=== PATIENT | female | born 1955 | race Caucasian/White ===

== ENCOUNTER 2019-09-15 12:15 | Day surgery (SDC) | payer OTHER ==
[2019-09-01 13:50] LABS: URINE BILIRUBIN NEGATIVE (Negative); URINE BLOOD NEGATIVE (Negative); URINE CLARITY CLEAR; URINE COLOR YELLOW; URINE GLUCOSE-RANDOM* NEGATIVE (Negative); URINE KETONES NEGATIVE (Negative); URINE LEUKOCYTES-REFLEX 1+ (Negative); URINE NITRITE-REFLEX NEGATIVE (Negative); URINE PROTEIN (DIPSTICK) NEGATIVE (Negative); URINE UROBILINOGEN 0.2 E.U./dl (0.2-1.0)
[2019-09-01 13:59] LABS: CASTS None Seen /LPF (None Seen); SQUAMOUS 0-3 Few /LPF (0-3); URINE WBC-REFLEX 0-5 Rare /HPF (0-5)
[2019-09-01 14:00] LABS: BACTERIA-REFLEX 1-9 Few /HPF (None Seen); CRYSTALS None Seen /LPF (None Seen); URINE RBC None Seen /HPF (0-2)
[2019-09-01 14:02] LABS: PROTIME 10.3 Seconds (9.3-11.4)
[2019-09-01 14:03] LABS: ALBUMIN 4.4 g/dL (3.4-5.0); CALCIUM 9.5 mg/dL (8.5-10.1); CREATININE 0.6 mg/dL (0.6-1.0); POTASSIUM 4.2 mmol/L (3.5-5.1)
[2019-09-01 14:11] LABS: HEMOGLOBIN 13.7 gm/dL (12.0-15.0); MCH 29.9 pg (26.0-34.0); MCHC 33.3 g/dL (28.0-37.0); MCV 89.8 fL (80.0-100.0); RBC 4.56 mil/uL (4.20-5.00); RDW 12.6 % (10.5-14.5); WBC 8.1 thou/uL (4.0-11.0)
[~2019-09-15] VITALS: Ht 167.6 cm; Wt 83.5 kg
--- NOTE | ~2019-09-15 | O ---
[facility] [place] [address] OPERATIVE REPORT Name: REAL GUARDADO Room #: 150-7 [facility] M..#: [id number] Admission: 09/15/19 Attend Phys: Valentin Jackson MD Discharge: Date of : 53 Report #: [id number] THIS REPORT FOR: cc: ZIYAD - Family physician unknown ZIYAD - Family physician unknown Valentin Jackson MD ~ CC: ZIYAD unknown Valentin Jackson DATE OF SERVICE: 09/15/2019 PREOPERATIVE DIAGNOSIS: Right knee valgus osteoarthritis. POSTOPERATIVE DIAGNOSIS: Right knee valgus osteoarthritis. PROCEDURE: Right total knee arthroplasty using Navio robotic assistance. SURGEON: Valentin Jackson MD. CAE ENGINEER: Emani Will PA-C. INDICATIONS FOR CAE ENGINEER: Throughout the case, extensive retraction and manipulation of the knee was required. This was afforded to me by my health assistant. ANESTHESIA: LMA with an adductor canal block. IMPLANTS: [employer]hew size 6 Journey II BCS Oxinium femur, size 4 tibia, size 32 patella and a size 11 polyethylene. TOURNIQUET TIME: 53 minutes. ESTIMATED BLOOD LOSS: 25 mL. COMPLICATIONS: None. SPECIMENS: None. CONDITION UPON LEAVING THE OPERATING ROOM: Stable. INDICATIONS FOR PROCEDURE: The patient is a 63-year-old female with severe right knee valgus osteoarthritis. She failed conservative measures for this and after discussion with her, she elected for right total knee arthroplasty. DESCRIPTION OF PROCEDURE: Risks, benefits, alternatives, complications were discussed in detail with the patient including but not limited to risk of anesthesia, risk of damage to nerves, arteries, blood vessels, risk for [facility] [address] [place] [address] OPERATIVE REPORT Name: REAL GUARDADO Room #: 150-7 [facility]..#: [id number] Admission: 09/15/19 Attend Phys: Valentin Jackson MD Discharge: Date of : 53 Report #: [id number] infection, bleeding, risk for continued knee pain, need for reoperation. Informed consent was obtained from the patient. Right knee was appropriately marked in the preoperative holding area. IV Ancef was given for preoperative antibiotics. Adductor canal block was placed by Anesthesia. She was brought to the operating room and placed in supine position on operating room table. LMA anesthesia was induced without complication. Tourniquet was placed on the right thigh. Right lower extremity was prepped and draped in normal sterile fashion. Timeout was performed properly identifying the patient and procedure as well as the instrumentation and implants. All in the operating room were in agreement. Right lower extremity was exsanguinated, tourniquet was inflated. Tourniquet time was 53 minutes. Standard midline approach to knee was made with 10 blade through the skin. Dissection was taken down sharply to the fascia and deep flaps were developed medially and laterally. Fresh 10 blade was used to make a medial parapatellar arthrotomy and the knee was inspected. There was severe valgus, lateral compartment osteoarthritis, moderate medial and patellofemoral osteoarthritis. It was decided to proceed with total knee arthroplasty. ACL and PCL were removed sharply. Reference pins were placed in the femur and the tibia. The knee was then digitally mapped using the Endgame robotic system. Intraoperative plan was made and we sized the size 6 femur with a size 4 tibia and a size 10 spacer. After acceptance of the intraoperative plan, the distal femoral cut was made with a Navio mansoor. The distal femoral cutting block was pinned in place and chamfer cuts were made on the femur. Attention was turned to the tibia. Remainder of the menisci removed with Bovie cautery. Tibial resection guide was pinned in place using the Navio for placement and tibial resection was made. After this, flexion and extension gaps were checked and found to have good balance in flexion and extension both medially and laterally. Tibia was then sized, found to be a size 4. Size 4 tibial trial was placed, pinned and punched. A size 6 femoral trial was placed and the box cut was made. This was then trialed with a size 9 up to a size 11 polyethylene and size 11 polyethylene demonstrated 1 to 1-1/2 millimeter of laxity medially and laterally throughout range of motion both digitally as well as manually. A 9 mm was resected from the posterior surface of the patella and a size 32 patellar trial button was placed. Knee was taken through range of motion, found to have good patellar tracking. Trial components were removed. Bony ends were thoroughly irrigated with normal saline. A final size 4 tibia, size 6 Journey II BCS Oxinium femur and a size 32 patella were cemented in place using standard cementation techniques. While the cement cured, a periarticular injection consisting of morphine, ropivacaine, epinephrine and Toradol was placed around the knee joint capsule. After the cement cured, tourniquet was deflated. Hemostasis was obtained with Bovie cautery. Final size 11 polyethylene was placed. A gram of vancomycin was placed deep in the joint. The fascia was closed with 0 Vicryl, skin was closed with 2-0 Vicryl, 3-0 Monocryl. [facility] [address] [address] OPERATIVE REPORT Name: REAL GUARDADO Room #: 150-7 [facility].#: [id number] Admission: 09/15/19 Attend Phys: Valentin Jackson MD Discharge: Date of : 53 Report #: [id number] and a SCHUYLER dressing was applied. The patient tolerated this procedure well and went to recovery room under care of anesthesia postoperatively. By: [id number] [id number] Valentin Jackson MD /nt
[~2019-09-15 12:15] MED LIST: ACYCLOVIR 400400 MG PO; ATENOLOL 25MG T25 M1 PO; CELEBREX 200 M200 M1 PO; CLARITIN10 M3 PO; COLACE100 MG PO; FISH OIL 1,0001 EAC9 PO; PEPCID20 MG PO; VITAMIN B COMP1 EACH PO
[2019-09-15 13:32] VITALS: BP 131/64
--- NOTE | 2019-09-15 18:35 | NUR ---
63 YO FEMALE ADMITTED FROM PACU. A&OX4. IV INTACT IN L FA. INFUSING FLUIDS W/O COMPS. RIGHT KNEE WITH ERIKA WRAP SECURED WITH POLAR PACK. DENIES ANY PAIN AT THIS TIME. ORIENTED PT TO ROOM, CALL LIGHT W/I REACH.
[2019-09-15 19:40] VITALS: BP 98/52
--- NOTE | 2019-09-16 03:59 | NUR ---
RECEIVED CARE OF PATIENT AT 1900. PATIENT ALERT AND ORIENTED X4. AT BEDSIDE 1ST PART OF SHIFT. R LOWER EXT HAS ERIKA WRAP WITH POLAR ICE UNDER. PATIENT HAS KRISHNA TEDS AND SCD'S. PATIENT SAYS R LOWER EXT NUMB FROM KNEE TO TOES AT BEGINNING OF SHIFT. STATES FEELING COMING BACK A LITTLE AT THE TIME OF THIS WRITNG. C/O PAIN IN R KNEE, MED GIVEN WITH GOOD RELIEF. GETS UP TO BSC WITH SBA. IV PATENT WITH IV FLUIDS INFUSING. SLEPT OFF AND ON DURING NIGHT.
[2019-09-16 04:00] VITALS: BP 101/52
[2019-09-16 05:39] LABS: HEMOGLOBIN 12.3 gm/dL (12.0-15.0); MCH 29.9 pg (26.0-34.0); MCHC 33.2 g/dL (28.0-37.0); MCV 90.2 fL (80.0-100.0); RBC 4.1 mil/uL (4.20-5.00); RDW 12.8 % (10.5-14.5); WBC 9.7 thou/uL (4.0-11.0)
[2019-09-16 07:45] VITALS: BP 90/60
[2019-09-16] MEDS ORDERED: NEURONTIN 300300 M1 PO (11:53)
[2019-09-16] MEDS ORDERED: ASPIR 8181 MG PO (11:53)
[2019-09-16 13:48] VITALS: BP 90/60
--- NOTE | 2019-09-16 14:00 | NUR ---
PT DOING WELL. DSNG D&I. AMBULATED W/ THERAPY AND DID WELL. PAIN WELL CONTROLLED W/ PAIN MEDS. USING COOLING DEVICE. EATING AND DRINKING WELL. HOME AT THIS TIME.
--- NOTE | 2019-09-16 14:17 | NUR ---
PT ADMITTED RLATED TO RIGHT TOTAL KNEE REPLACEMENT. CM REVIEWED CHART AND SPOKE WITH CARE TEAM. CM MET WITH PT AND SIG OTHER AT BEDSIDE THIS DAY. PT IS A&O X4. CM ROLE INTRODUCED. PT INDICATED SHE LIVES IN A HOUSE WITH NO STEPS TO ENTER BUT 5 TO KITCHEN AND 11 TO BEDROOM. PT INDICATED SHE HAS ALL NEEDED DME UPON DC. PT HAS A FWW, 2 TOILET RISERS, A CANE, AND A BED RAIL. PT INDICATED SHE HAS AN OP PT APPOINTMENT FRIDAY NEXT TO [facility] WHERE PT WORKS. PT IS TO DISCHARGE HOME THIS DAY. NO OTHER CM INTERVENTION INDICATED. CASE CLOSED.
--- NOTE | 2019-09-17 15:28 | EKG ---
[facility] [place] [address] ELECTROCARDIOGRAM REPORT Name: REAL GUARDADO Room #: DEP [facility].#: [id number] Admission: 09/15/19 Attend Phys: Valentin Jackson MD Discharge: 09/16/19 Date of : 53 Report #: [id number] THIS REPORT FOR: cc: FAM - Family physician unknown FAM - Family physician unknown Don Durbin MD ~ THIS REPORT FOR: //name// [facility] Test Date: 2019-09-01 Test Time: 13:35:12 Pat Name: REAL GUARDADO Department: Room: Gender: F Medical Terminologist: karla : 1955 Requested By: Valentin Jackson Order Number: [id number] MD: Don uDrbin Measurements Intervals [place] Rate: 62 P: CT: 160 QRS: 2 QRSD: 101 T: 34 QT: 410 QTc: 417 Interpretive Statements Atrial-paced rhythm No previous ECG available for comparison Electronically Signed On 09-01-2019 16:21:07 COMPRESSION MOLDING MACHINE SETTER by Don Durbin [email or web address] <ELECTRONICALLY SIGNED> By: Don Durbin MD 09/01/19 1621 [id number] Don Durbin MD /EPI
== END 2019-09-16 14:52 | disposition home or self-care (01) ==
LOC: OR 12:15 → TBA 12:16 → OR 12:55 → 4S 16:43 → OR 16:45 → ENTRNSPT 09-16 14:08 → EDTRNSPTSTS 09-16 14:09 → OR 09-16 14:52
PROVIDERS: Orthopaedic Surgery
DX: M17.11 Unilateral primary osteoarthritis, right knee (principal); M19.90 Unspecified osteoarthritis, unspecified site; K21.9 Gastro-esophageal reflux disease without esophagitis; E66.3 Overweight; Z98.890 Other specified postprocedural states; Z79.899 Other long term (current) drug therapy; Z98.41 Cataract extraction status, right eye; Z88.8 Allergy status to other drugs, medicaments and biological substances; Z95.0 Presence of cardiac pacemaker; Z79.82 Long term (current) use of aspirin; Z68.29 Body mass index [BMI] 29.0-29.9, adult
CPT/HCPCS: 10102; 50010; 50101; 50415; 50954; 51130; 51225; 51320; 52001; 52282; 53000; 53078; 54118; 55372; 56527; 56528; 57095; 57103; 57110; 57127; 57180; 62110; 62900; 64042; 70005